=== PATIENT | female | born 1970 | race Caucasian/White ===

== ENCOUNTER 2022-07-30 17:52 | Emergency (ER) | payer OTHER, SELFPAY ==
--- NOTE | ~2022-07-30 | XR_ITS ---
EXAMINATION: XR HAND, LEFT CLINICAL INFORMATION: Thumb injury COMPARISON: None available. TECHNIQUE: PA, lateral, and oblique views of the left hand. FINDINGS: Soft tissue defect at the distal aspect of the thumb with overlying gauze material. No definite foreign body. There is a very small calcific density at the radial aspect of the interphalangeal joint which could represent a tiny avulsion fracture or may be chronic/degenerative. XR/XR hand LT 2V IMPRESSION: Soft tissue defect at the distal aspect of the thumb with no definite foreign body. There is a very small calcific density at the radial aspect of the interphalangeal joint which could represent a tiny avulsion fracture or may be chronic/degenerative.
--- NOTE | 2022-07-30 18:23 | ED_ITS ---
HPI - Extremity Injury (Upper) General Chief Complaint: Wound/Laceration <BRANDAN Hodgson - Last Filed: 07/30/22 18:29> Stated Complaint: cat attack on left hand <BRANDAN Hodgson - Last Filed: 07/30/22 18:29> Time Seen by Provider: 07/30/22 18:56 <BRANDAN Hodgson - Last Filed: 07/30/22 18:29> Source: patient <Kimber Pena MD - Last Filed: 07/30/22 21:27> Mode of arrival: ambulatory <Kimber Pena MD - Last Filed: 07/30/22 21:27> Limitations: no limitations <Kimber Pena MD - Last Filed: 07/30/22 21:27> History of Present Illness HPI narrative: Patient comes to the emergency room complaining of a wound to the tip of the left thumb. Patient states that she was chopping up wood into small pieces for fire. Patient accidentally hit her thumb with an Axe. Patient denies any other injuries. Patient states she she thinks that she has tetanus shot approximately 5 years ago. <Kimber Pena MD - Last Filed: 07/30/22 21:27> Related Data Home Medications: Previous Rx's Medication Instructions Recorded cefuroxime axetil 500 mg tablet 500 mg PO BID #20 tabs 07/30/22 ibuprofen 600 mg tablet 600 mg PO TID PRN fever or pain 07/30/22 #20 tabs <BRANDAN Hodgson - Last Filed: 07/30/22 18:29> Allergies/Adverse Reactions: Allergies Allergy/AdvReac Type Severity Reaction Status Date / Time No Known Allergies Allergy Verified 07/30/22 18:28 <BRANDAN Hodgson - Last Filed: 07/30/22 18:29> Review of Systems Review of Systems: Constitutional : No Weight loss, No Fever, No Chills, No Night Sweats, No Fatigue, No Malaise ENT/Mouth : No Hearing loss, No Ear Pain, No Nasal Congestion, No Sinus Pain, No Hoarseness, No sore throat, No Rhinorrhea, No Swallowing Difficulty Eyes: No Eye Pain, No Swelling, No Redness, No Foreign Body, No Discharge, No Vision Changes Cardiovascular : No Chest Pain, No SOB, No Dyspnea on Exertion, No Orthopnea, No Edema, No Palpitations Respiratory : No Cough, No Sputum, No Wheezing, No Smoke Exposure, No Dyspnea Gastrointestinal : No Nausea, No Vomiting, No Diarrhea, No Constipation, No abdominal Pain, No Hematochezia, No Melena Genitourinary : no irregular bleeding, No Dysuria, No Urinary Frequency, No Hematuria, No Urinary Incontinence, No Urgency, No Flank Pain, No Urinary Flow Changes, No Hesitancy Musculoskeletal : No joint pain, No Myalgias, No Joint Swelling Skin : No Skin Lesions, No rash, laceration to the tip of the left thumb Neuro : No Weakness, No Numbness, No Paresthesias, No Loss of Consciousness, No Dizziness, No Headache Psych : No Anxiety/Panic, No Depression, No SI/HI/AH/VH, No Social Issues, Heme/Lymph: No Bruising, No Bleeding,No Lymphadenopathy Endocrine : No Polyuria, No Polydipsia, No Temperature Intolerance <Kimber Pena MD - Last Filed: 07/30/22 21:27> [facility] Social History Social History: Social History Advance Directives: No Advance Directives Information Provided: No <BRANDAN Hodgson - Last Filed: 07/30/22 18:29> Physical Exam Vital Signs: Vital Signs: Last Vital Signs Temp 98.4 F 07/30/22 18:25 Pulse 64 07/30/22 18:25 Resp 18 07/30/22 18:25 BP 136/73 07/30/22 18:25 Pulse Ox 98 07/30/22 18:25 O2 Del Method Room Air 07/30/22 18:25 BMI result Body Mass Index 23.1 <BRANDAN Hodgson - Last Filed: 07/30/22 18:29> Vital Signs: Last Vital Signs Temp 98.4 F 07/30/22 18:25 Pulse 64 07/30/22 18:25 Resp 18 07/30/22 18:25 BP 136/73 07/30/22 18:25 Pulse Ox 98 07/30/22 18:25 O2 Del Method Room Air 07/30/22 18:25 BMI result Body Mass Index 23.1 <Kimber Pena MD - Last Filed: 07/30/22 21:27> Const: Other: Appearance: Alert. Oriented X3. No acute distress. Eyes: Pupils equal, round and reactive to light. ENT: Pharynx normal. Neck: Normal inspection. Neck supple. No lymph nodes noted. No crepitus CVS: Normal heart rate and rhythm. Pulses normal. Normal S1 and S2 Respiratory: No respiratory distress. Breath sounds normal. No Wheezing. No rales Abdomen: Soft and nontender. No rigidity. No distention. Skin: Skin warm and dry. Normal skin color. Normal skin turgor. Extremities: No lower extremity edema. The tip of the thumb including a 3rd the distal aspect of the fingernail including the subcutaneous tissue and muscle, are nearly amputated. There is very small amount of tissue attaching the distal part of the fingertip to the finger. Neuro: Oriented X 3. No motor deficit. No sensory deficit. Moving all extremities. No slurred speech. CN 2 through 12 grossly intact Psych: calm, cooperative, normal affect <Kimber Pena MD - Last Filed: 07/30/22 21:27> Course Course Course Narrative: RME--52-year-old female with no significant past medical history presenting to the ED complaining of left thumb laceration s/p chopping wood with Axe [employer]. Last tetanus unknown Laceration noted to distal left thumb involving nail. Actively bleeding. X-rays ordered. Patient refusing Tdap <BRANDAN Hodgson - Last Filed: 07/30/22 18:29> Medications Administered Discontinued Medications Generic Name Dose Route Start Last Admin Trade Name Freq PRN Reason Stop Dose Admin Lidocaine HCl 10 ml 07/30/22 19:47 07/30/22 19:59 Lidocaine Hcl 2% 2 Ml Vial INFILTRATI 07/30/22 19:48 10 ml ONCE ONE Administration <BRANDAN Hodgson - Last Filed: 07/30/22 18:29> Medications Administered Discontinued Medications Generic Name Dose Route Start Last Admin Trade Name Freq PRN Reason Stop Dose Admin Lidocaine HCl 10 ml 07/30/22 19:47 07/30/22 19:59 Lidocaine Hcl 2% 2 Ml Vial INFILTRATI 07/30/22 19:48 10 ml ONCE ONE Administration <Kimber Pena MD - Last Filed: 07/30/22 21:27> Medical Decision Making Medical Decision Making MDM Narrative: -I discussed with the patient that the distal aspect of the fingernail will definitely follow off. I also discussed with the patient that given that the the whole tip of the thumb is nearly amputated, it is unclear if it can be safe. Patient received 6 stitches, discussed with the patient is possible that she may lose the whole tip the finger. -patient may have an avulsion fracture at the distal aspect of the thumb. Patient receiving antibiotics (cefuroxime), this would be an exposed fracture. -patient instructed to call Hand surgery on Monday for follow-up. -patient is not sure when she had her last Tdap shot. Patient refused a booster. -patient able to flex and extend the thumb. No tendon injury suspected. <Kimber Pena MD - Last Filed: 07/30/22 21:> Differential Diagnosis Differential Diagnoses: The differential diagnosis associated with the presentation includes (Laceration, avulsion) <Kimber Pena MD - Last Filed: 07/30/22:> Independent Interpretation I performed an independent interpretation of an: Plain X-Ray <Kimber Pena MD - Last Filed: 07/30/22:> Radiology Impression Discussion of test interpretation with radiology: I have reviewed the radiologist's reading. <Kimber Pena MD - Last Filed: 07/30/22 21:27> Radiologist Impression: Soft tissue defect at the distal aspect of the thumb with overlying gauze material. No definite foreign body. There is a very small calcific density at the radial aspect of the interphalangeal joint which could represent a tiny avulsion fracture or may be chronic/degenerative.? XR/XR hand LT 2V IMPRESSION: Soft tissue defect at the distal aspect of the thumb with no definite foreign body. There is a very small calcific density at the radial aspect of the interphalangeal joint which could represent a tiny avulsion fracture or may be chronic/degenerative <Kimber Pena MD - Last Filed: 07/30/22 21:27> Procedures Laceration Laceration 1: Site: hand <Kimber Pena MD - Last Filed: 07/30/22 21:27> Side (If applicable): left <Kimber Pena MD - Last Filed: 07/30/22 21:> Size (cm): 2 <Kimber Pena MD - Last Filed: 07/30/22 21:27> Description: stellate and flap <Kimber Pena MD - Last Filed: 07/30/22 21:27> Depth: involves muscle layer and [id number] <Kimber Pena MD - Last Filed: 07/30/22 21:27> Local Anesthetic: lidocaine 2% <Kimber Pena MD - Last Filed: 07/30/22 21:27> Amount of anesthesia used (mL): 6 <Kimber Pena MD - Last Filed: 07/30/22 21:27> Pre-repair: wound explored and irrigated extensively <Kimber Pena MD - Last Filed: 07/30/22 21:27> Skin layer closed with: nylon <iKmber Pena MD - Last Filed: 07/30/22 21:27> Size (cm): 5-0 <Kimber Pena MD - Last Filed: 07/30/22 21:27> Number of sutures: 6 <Kimber Pena MD - Last Filed: 07/30/22 21:27> Technique: simple, interrupted <Kimber Pena MD - Last Filed: 07/30/22 21:27> Subcutaneous layer closed with: vicryl <Kimber ePna MD - Last Filed: 07/30/22 21:27> Size: 4-0 <Kimber Pena MD - Last Filed: 07/30/22 21:27> Number of sutures: 3 <Kimber Pena MD - Last Filed: 07/30/22 21:27> Technique: simple, interrupted <Kimber Pena MD - Last Filed: 07/30/22 21:27> Discharge Plan Discharge Clinical Impression: Avulsion of skin of thumb <BRANDAN Hodgson - Last Filed: 07/30/22 18:29> Patient Disposition: Home, Self-Care <BRANDAN Hodgson - Last Filed: 07/30/22 18:29> Instructions: Skin Avulsion (ED), Nail Avulsion (ED) <BRANDAN Hodgson - Last Filed: 07/30/22 18:29> Additional Instructions: Please follow-up with Hand surgery on Monday. Your stitches need to be removed in 7-10 days. Please follow-up with your primary care physician tomorrow. If you have any worsening or new symptoms, please return to the emergency room or call 911 <BRANDAN Hodgson - Last Filed: 07/30/22 18:29> Prescriptions: New cefuroxime axetil 500 mg tablet 500 mg PO BID Qty: 20 0RF ibuprofen 600 mg tablet 600 mg PO TID PRN (Reason: fever or pain) Qty: 20 0RF <BRANDAN Hodgson - Last Filed: 07/30/22 18:29> Referrals: Jihan Antonio MD [Physician] - 08/01/22 <BRANDAN Hodgson - Last Filed: 07/30/22 18:29>
[2022-07-30 18:25] VITALS: BP 136/73; PULSE 64; RESP 18; TEMP 36.9; O2SAT 98; BMI 23.1
== END 2022-07-30 21:37 | disposition home or self-care (01) ==
PROVIDERS: Emergency Provider Emergency Medicine; PCP Internal Medicine
DX: S61.012A Laceration without foreign body of left thumb without damage to nail, initial encounter (principal); W27.0XXA Contact with workbench tool, initial encounter; Y93.H9 Activity, other involving exterior property and land maintenance, building and construction; Y92.017 Garden or yard in single-family (private) house as the place of occurrence of the external cause; Y99.9 Unspecified external cause status
CPT/HCPCS: 12041; 73120; 99282; 99284